=== PATIENT | male | born 1965 | race Caucasian/White ===

== ENCOUNTER 2016-12-18 14:41 | Inpatient (IN) | payer OTHER ==
[~2016-12-18] VITALS: Ht 180.3 cm; Wt 75.6 kg
[~2016-12-18 14:41] MED LIST: AMIO200T37 PO; AMIO20TA PO; AMIODORONE; ASCO500T PO; ASPI1TAB PO; ASPI81TA85 PO; BREO1INH INH; DAILTAB51 PO; DOCU10CA PO; FERR325T3 PO; FIBE500T2 PO; FINA5TAB2 PO; FLOM5CAP PO; FOLI1TAB2 PO; FURO20TA2 PO; FURO40VL IVP; LISI-538 PO; LOSA25TA8 PO; METO50TA2 PO; PANT40TA2 PO; PERCOCET PO; PRAV10TA PO; PRAV40TA2 PO; PROTPAK PO; ROCE1INJ4 IV; TYLE325T5 PO; VITA-112 PO; WARF-20 PO; [UNRECOGNIZED DRUG - CODE] PO
[2016-12-18] MEDS ORDERED: PERCOCET 5MG/325MG TAB PO PRN (15:00)
[2016-12-18 15:37] VITALS: BP 116/78
[2016-12-18] MEDS ORDERED: LOVE0.8I SC (16:02)
[2016-12-18] MEDS ORDERED: LOVE0.4I2 SC (16:02)
[2016-12-18] MEDS ORDERED: WARF4TAB51 PO (16:12)
[2016-12-18] MEDS ORDERED: WARF-20 PO (16:12)
[2016-12-18] MEDS: MORPHINE 2 MG/ML 1ML SYRINGE IV PRN ×2 (16:53→20:34)
[2016-12-18] MEDS ORDERED: ENOX80IN3 SC (17:31)
[2016-12-18 18:00] VITALS: BP 125/75
[2016-12-18] MEDS: DOCUSATE SODIUM 100 MG CAP PO SCH (20:30)
[2016-12-18] MEDS: TAMSULOSIN 0.4 MG CAP PO SCH (20:30)
[2016-12-18] MEDS: METOPROLOL TART 50 MG TAB PO SCH (20:30)
[2016-12-18] MEDS: PRAVASTATIN 20 MG TAB PO SCH (20:30)
[2016-12-18] MEDS: FINASTERIDE 5 MG TAB PO SCH (20:30)
[2016-12-18] MEDS ORDERED: ENOXAPARIN 80 MG/0.8 ML SYRINGE (J1650) SC ONE (21:00)
[2016-12-18 22:00] VITALS: BP 138/87
[2016-12-19] VITALS (8 sets, daily range): BP systolic 107–124; BP diastolic 65–74
[2016-12-19] MEDS: ceFAZolin SOD 1 GM in D5W MINI-BAG PLUS 50 ML IV SCH ×3 (00:13→10:28)
[2016-12-19] MEDS: MORPHINE 2 MG/ML 1ML SYRINGE IV PRN ×2 (05:18→15:16)
[2016-12-19 06:48] LABS: BASO % 0.5 % (0.0-1.0); EOS # 0.1 K/mm3 (0.0-0.50); EOS % 1.5 % (0.0-3.0); LARGE UNSTAINED CELL # 0.2 K/mm3 (0.0-0.4); LARGE UNSTAINED CELL % 2.2 % (0.0-4.0); LYMPH # 1.5 K/mm3 (1.5-4.5); LYMPH % 17.1 % (24.0-44.0); MEAN CORPUSCULAR VOLUME 90.9 fl (80.0-96.0); MONO # 0.6 K/mm3 (0.0-0.8); MONO % 7.7 % (0.0-5.0); NEUTROPHILS # 5.6 K/mm3 (1.8-7.7); NEUTROPHILS % 70.8 % (36.0-66.0); PLATELET COUNT, AUTOMATED 237 k/mm3 (150-450); RED CELL DISTRIBUTION WIDTH 15.2 % (11.5-14.5); WHITE BLOOD COUNT 7.9 K/mm3 (4.0-10.0)
[2016-12-19 07:05] LABS: CALCIUM LEVEL 8.3 MG/DL (8.5-10.1); CREATININE FOR GFR 1.58 MG/DL (0.70-1.30); GLOMERULAR FILTRATION RATE 49.3 (>56); POTASSIUM SERUM 4.1 MEQ/L (3.5-5.1)
[2016-12-19] MEDS: DOCUSATE SODIUM 100 MG CAP PO SCH ×2 (07:45→19:50)
[2016-12-19] MEDS: LOSARTAN 25 MG TAB PO SCH (07:45)
[2016-12-19] MEDS: METOPROLOL TART 50 MG TAB PO SCH ×2 (07:46→19:51)
[2016-12-19] MEDS: AMIODARONE 200 MG TAB (PACERONE) PO SCH (07:46)
[2016-12-19] MEDS ORDERED: AMIODARONE 100MG TABLET (PACERONE) PO SCH (09:00)
[2016-12-19] MEDS ORDERED: fentaNYL 250 MCG/5 ML INJECTION (J3010) As Ordered ONE (11:00)
[2016-12-19] MEDS ORDERED: ONDANSETRON 4MG/2ML VIAL (J2405) As Ordered ONE ×2 (11:00→13:27)
[2016-12-19] MEDS ORDERED: KETOROLAC 60 MG/2 ML VIAL (J1885) As Ordered ONE (11:00)
[2016-12-19] MEDS ORDERED: NEOSTIGMINE 1MG/ML 5 ML SYRINGE (J2710) As Ordered ONE (11:00)
[2016-12-19] MEDS ORDERED: GLYCOPYRROLATE INJ 0.2 MG/ML 2 ML VIAL As Ordered ONE (11:00)
[2016-12-19] MEDS ORDERED: MIDAZOLAM INJ 2 MG/2 ML VIAL (J2250) As Ordered ONE (11:00)
[2016-12-19] MEDS ORDERED: ROCURONIUM BROMIDE 50 MG/5 ML VIAL As Ordered ONE ×2 (11:00→11:51)
[2016-12-19] MEDS ORDERED: dexameTHASONE 4 MG/ML 1ML VIAL (J1100) As Ordered ONE (11:00)
[2016-12-19] MEDS ORDERED: ePHEDrine SULFATE 25 MG/5 ML(5MG/ML) SYRINGE As Ordered ONE (11:02)
[2016-12-19] MEDS ORDERED: PHENYLephrine HCL 500 MCG/5 ML (100MCG/ML) SYRINGE (J2370) As Ordered ONE (11:02)
[2016-12-19] MEDS ORDERED: LIDOCAINE 2% INJ 100 MG/5 ML SDV (FOR ANES.) As Ordered ONE (11:08)
[2016-12-19] MEDS ORDERED: ERTAPENEM 1 GM INJ (INVanz) (J1335) As Ordered ONE (11:34)
[2016-12-19] MEDS ORDERED: fentaNYL 100 MCG/2 ML INJECTION (J3010) As Ordered ONE ×2 (11:53→13:27)
[2016-12-19] MEDS ORDERED: BUPIVACAINE HCL 0.25% 30 ML VIAL As Ordered ONE (12:37)
[2016-12-19] MEDS ORDERED: ONDANSETRON 4MG/2ML VIAL (J2405) IV PRN (13:45)
[2016-12-19] MEDS ORDERED: MORPHINE 2 MG/ML 1ML SYRINGE IV PRN (13:45)
[2016-12-19] MEDS ORDERED: fentaNYL 100 MCG/2 ML INJECTION (J3010) IV PRN (13:45)
[2016-12-19] MEDS ORDERED: LR 1,000 ML IV SCH (13:45)
[2016-12-19] MEDS ORDERED: PERCOCET 5MG/325MG TAB PO PRN (13:45)
[2016-12-19] MEDS ORDERED: METOCLOPRAMIDE INJ 10MG/2ML VIAL (J2765) IV PRN (13:45)
[2016-12-19] MEDS ORDERED: MORPHINE 10 MG/ML 1ML VIAL As Ordered ONE (13:49)
[2016-12-19] MEDS: LR 1,000 ML IV SCH ×2 (15:16→20:36)
[2016-12-19] MEDS ORDERED: MORPHINE 2 MG/ML 1ML SYRINGE IV ONE (16:15)
[2016-12-19] MEDS ORDERED: WARFARIN SOD 4 MG TAB PO ONE (17:00)
[2016-12-19] MEDS: TAMSULOSIN 0.4 MG CAP PO SCH (19:50)
[2016-12-19] MEDS: FINASTERIDE 5 MG TAB PO SCH (19:51)
[2016-12-19] MEDS: PRAVASTATIN 20 MG TAB PO SCH (19:51)
[2016-12-19] MEDS: MORPHINE 4 MG/ML 1ML SYRINGE IV PRN (19:52)
--- NOTE | 2016-12-19 20:40 | HPE ---
DATE OF ADMISSION: 12/18/2016 ADMITTING DIAGNOSIS: Recurrent abdominal wall abscess. HISTORY OF PRESENT ILLNESS: The patient is a 51-year-old man who has had a complex surgical history over the last several years. In early 2014 he underwent a replacement of his aortic and mitral valves with bypass of a coarctation of his aorta. In early 2015, he developed acute diverticulitis and underwent an exploratory laparotomy and resection of a portion of his colon with a diverting small bowel ostomy. He apparently developed a small-bowel obstruction in October 2015 and required re-exploration. He underwent takedown of his ileostomy in January 2016 but had bleeding postoperatively and underwent re-exploration for this. Since shortly after his surgery, he developed an infection of his right lower quadrant transverse incision at the site of his previous ileostomy. This has been drained several times and more recently has spontaneously opened and drained at its lateral end. I had seen him back in late 2015 and scheduled him for exploration of this wound, but shortly before surgery he had some pain and developed EKG changes, and his surgery was cancelled for re-evaluation by cardiology. He was subsequently cleared for surgery. He is on anticoagulation and has been placed on bridge therapy. The patient was scheduled for elective surgery on December 19 for exploration of his wound to try to determine if there is a foreign body or other feature that would continue his recurrent episodes of infection; however, on December 18 the patient contacted the office, as he was having severe pain in the wound. It had not drained since mid October, and it is unusual , he reports, for it to have gone this long. He noted the onset of some pain on December 17, and this rapidly worsened with some redness developing around his wound. He had such severe pain that he presented to the office for evaluation. He was noted to have the start of a recurrent infection with a developing abscess at the lateral end of his wound with some surrounding erythema. It looked as if it was about to drain, but I elected, since he had already traveled an hour and half to get to the hospital, that it would be best to place him in the hospital, start him on some antibiotics, and have him available for surgery as scheduled on the morning of December 19 to address this recurrent infection. MEDICATIONS: - The patient is on amiodarone 200 mg orally every other day. - He is taking aspirin 81 mg by mouth daily. - He is on finasteride 5 mg by mouth daily - tamsulosin 0.4 mg by mouth daily - He is taking pravastatin 40 mg by mouth daily. - He is taking losartan by mouth daily. - He is taking a Breo Ellipta inhaler 100/25 mcg one puff daily - metoprolol tartrate 50 mg by mouth twice daily - He has been on Coumadin 2 mg three times weekly on Sunday, Sunday, and Sunday and Coumadin 4 mg by mouth four times weekly on Sunday, Sunday, , and Sunday. - He has been taking some vitamin D and some fiber supplement. He has stopped his Coumadin effective the December 15 and was started on Lovenox 72 mg by mouth twice daily by his music journalist. ALLERGIES: The patient reports no known drug allergies. MEDICAL HISTORY: Significant for a history of coarctation of the aorta, which he underwent two surgeries for as a young person. In August 2014, he had a repeat repair of his coarctation as an aortic bypass. He has a history of hypertension and hyperlipidemia. He has chronic obstructive pulmonary disease. He has benign prostatic hyperplasia. He has a history of prior stroke, though appears to have had little residual. He has known diverticulosis. He has had a history of some peripheral vascular disease. He has had significant aortic and mitral valve disease, leading to replacement of both valves in August 2014. SURGICAL HISTORY: Includes repair of his coarctation of his aorta with aortic and mitral valve replacements in August 2014. He had a partial colectomy in September 2015 with an exploratory laparotomy in October 2015. He had ileostomy takedown in January, complicated by bleeding, requiring further surgery. He had a double coronary bypass along the line as well, I believe at the same time as his valve replacements. FAMILY HISTORY: Shows that his father is due to lung cancer, and mother has diabetes and hypertension. He is a former smoker who quit to 2006. He does drink alcohol, several per week. REVIEW OF SYSTEMS: Shows no history of chills or fever. He denies any chest pain or palpitations. He denies chronic cough, wheezing, or sputum production. He has not had any rectal bleeding. He is having bowel movements. He does report constipation, which he suggests is somehow related to his recurrent abscess. He has never had any definite intestinal drainage through his area of infection. He denies any other acute issues associated with his review of systems. PHYSICAL EXAMINATION: The patient's most recent vital signs show his temperature to be 98.0 with a pulse of 85, respirations of 20, and a blood pressure of 125/75. The patient is alert and oriented. Skin is warm and dry. Sclerae are anicteric. Mucous membranes are moist. The neck is supple without mass. Heart exam reveals prominent heart valve sounds, consistent with his known valve replacements. He has chest wall scarring, consistent with his prior surgery. His breath sounds are somewhat limited in intensity bilaterally, but he has no wheezing or rhonchi. The abdomen shows midline scarring as well as a right lower quadrant transverse scar. There is no sign of definite hernia. At the lateral end of his right lower quadrant scar there is an area of redness surrounding the scar, maximally about 5 cm in diameter. Within the scar, there is a small, slightly raised area of what appears to be a developing pustule about 1 cm in length x 3-4 mm in width. This is not at this time draining. He has some tenderness surrounding this area. The abdomen is otherwise soft and nontender without appreciable mass. Extremities show no peripheral edema. He has palpable radial pulse bilaterally. FINAL IMPRESSION: 1. Recurrent right lower quadrant wound infection. 2. Status post aortic and mitral valve replacements with aortic bypass for recurrent coarctation of the aorta. 3. Coronary artery disease status post bypass. 4. History of diverticulitis status post colonic resection. 5. Hypertension. 6. hyperlipidemia. 7. Chronic obstructive pulmonary disease. 8. Benign prostatic hyperplasia. 9. Atherosclerotic peripheral vascular disease. PLAN: The patient will be admitted given his acute infection within the wound. He will be started on antibiotics to provide coverage. I anticipate, given the progress of his wound, that spontaneous drainage of his small abscess will occur within a short period of time, and so I will not proceed with incision and drainage at this point. I would anticipate that we would proceed with his surgery as already scheduled on December 19. He had started his bridge therapy as anticipated and will be given one dose of Lovenox tonight, and this will then be discontinued, and this should be adequate for his surgery tomorrow. The plan is to proceed with exploration directly through his wound, to open this area, and look for evidence of a foreign body or other underlying process that prevents the wound from healing and resolving completely. His regular cardiac medications will be continued. He will be kept nothing by mouth after midnight. The patient has previously been counseled regarding the plan for care and desires to proceed. IBIS
[2016-12-20 06:00] VITALS: BP 159/92
--- NOTE | 2016-12-20 07:09 | RO ---
DATE OF PROCEDURE: 12/19/2016 PREOPERATIVE DIAGNOSIS: Recurrent abdominal wall abscess at right lower quadrant wound. POSTOPERATIVE DIAGNOSIS: Enterocutaneous fistula right lower quadrant. OPERATIVE PROCEDURE: Exploration of wound with laparotomy, excision of enterocutaneous fistula, and partial small-bowel resection. SURGEON: Gilberto Arreaga MD CIVIL CADD TECHNICIAN: Fer Valdez MS III INDICATIONS FOR PROCEDURE: The patient is a 51-year-old man who had undergone surgery for diverticulitis at another hospital in early 2015. Apparently this was an emergency procedure and he had a diverting ileostomy created. He had a postoperative bowel obstruction that required re-exploration. In January of 2016, he underwent closure of his ileostomy through his right lower quadrant incision. He had some postoperative bleeding that required re-exploration. Since then he has had several episodes of an abscess developing at the lateral extent of his wound. This has been occurring about every 3 or 4 weeks where he will now develop an abscess which opens spontaneously, drains for a time and then resolves only to recur again. He is now for exploration of this wound to assess whether this represents suture abscess or possibly an enterocutaneous fistula. DESCRIPTION OF PROCEDURE: The patient was placed under general endotracheal anesthesia. The patient's abdomen was prepped and draped in a sterile fashion. Examination of the right lower quadrant showed an approximately 10 cm transverse scar with a small open area at the lateral end of it. His abscess had been redeveloping over the last few days and actually broke open in the trench shovel operator hours of the day of surgery. A clamp was inserted into the opening and this advanced readily at least 6-7 cm into the abdominal wall. I made an incision in the scar to follow the tract of the fistula. An approximately 6-7 cm length of his old scar was opened by extending this incision medially and deepening this through the subcutaneous tissues using the electrocautery. There was some significant scarring noted. As the incision was deepened through the subcutaneous tissues, it was clear that the hemostat extended through the abdominal wall muscles and into the abdominal cavity. The muscles were opened medial and lateral to this fistula tract. I excised the more superficial portions of the tract with small margins of skin and subcutaneous tissue on both sides. The peritoneum was opened again medial and lateral to the sinus tract and with careful dissection the intra-abdominal contents were dissected away from the overlying abdominal wall. As dissection proceeded it was clear that the fistula extended to the area of his small bowel anastomosis underlying this portion of the abdominal wall. With further dissection, the proximal and distal limbs of this anastomosis were dissected free to allow better inspection. The tract extended right to the end of the anastomosis. As this area was opened somewhat, it appeared that there was either a small chronic abscess or possibly a small mucocele at the end of the anastomosis covered by some overlying portions of the small bowel wall and the periileal fat. There was no gross drainage of small bowel contents, but every so often a few bubbles of air were released and inspection suggested a very small fistula into the lumen of the small bowel. Some of the fibrofatty tissue around the anastomosis was excised to allow better inspection of this area as I determined how best to address this. Ultimately, I elected to excise what amounted to the staple line at the end of the anastomosis and restaple this area. Therefore, the small bowel was transected with a combination of cautery and sharp dissection with scissors. This removed the entire area where the abscess or mucocele had been with the area of the fistula. All of these fragments of skin and subcutaneous tissue and bowel were sent together labeled enterocutaneous fistula. Once the prior staple line was cut off, the ends of the bowel were held with allis clamps and the end of the bowel was closed with a TX60G stapler. This appeared to give an excellent closure. A few small bleeding points were controlled with cautery. There appeared to be excellent vascularity. The anastomosis was washed and irrigated off. A small Kelvin wound protector type retractor had been placed to perform this latter portion of the procedure where the end of the small bowel was excised. This was then removed. The surgical team changed gloves. The wound was irrigated. Final inspection within the abdomen showed no bleeding and the anastomosis looked good. The deepest muscle layer with the underlying peritoneum was then approximated with several interrupted simple sutures of #1 Vicryl. The internal oblique was then approximated with several interrupted simple sutures of #1 Vicryl and the external oblique was then also closed with Vicryl. I infiltrated some 0.25% Marcaine along both sides of the wound. The skin and subcutaneous tissues were loosely approximated with approximately four simple sutures of #4-0 nylon. Three small jacinta of a quarter inch Reynolds drain were then inserted into the subcutaneous tissues through the spaces between the sutures. These were sutured to the skin with Vicryl sutures. A bulky bandage was applied. The patient tolerated the procedure well without apparent complication. He was awakened in the operating room, extubated and moved to the recovery room in stable condition. IBIS
[2016-12-20] MEDS: DOCUSATE SODIUM 100 MG CAP PO SCH ×2 (08:11→20:07)
[2016-12-20] MEDS: LOSARTAN 25 MG TAB PO SCH (08:11)
[2016-12-20] MEDS: METOPROLOL TART 50 MG TAB PO SCH ×2 (08:11→20:08)
[2016-12-20] MEDS: MORPHINE 4 MG/ML 1ML SYRINGE IV PRN ×2 (08:12→23:20)
[2016-12-20] MEDS ORDERED: INFLUENZA QUADRIVALENT PF VACCINE 0.5ML SYRINGE/VIAL (90686) IM ONE (09:00)
[2016-12-20] MEDS ORDERED: NORCO, ANEXSIA 5/325MG TABLET (HYDROcodone/ACETAMINOPHEN) PO PRN (11:15)
[2016-12-20] MEDS: ENOXAPARIN 80 MG/0.8 ML SYRINGE (J1650) SC SCH ×2 (11:35→23:19)
[2016-12-20] MEDS: NORCO, ANEXSIA 5/325MG TABLET (HYDROcodone/ACETAMINOPHEN) PO PRN ×2 (11:39→20:12)
[2016-12-20] MEDS: LR 1,000 ML IV SCH (16:25)
[2016-12-20] MEDS ORDERED: WARFARIN SOD 2 MG TAB PO SCH ×2 (19:30→20:03)
[2016-12-20] MEDS ORDERED: WARFARIN SOD 4 MG TAB PO SCH (19:30)
[2016-12-20] MEDS: TAMSULOSIN 0.4 MG CAP PO SCH (20:08)
[2016-12-20] MEDS: FINASTERIDE 5 MG TAB PO SCH (20:08)
[2016-12-20] MEDS: PRAVASTATIN 20 MG TAB PO SCH (20:08)
[2016-12-20 22:00] VITALS: BP 135/70
[2016-12-21 06:00] VITALS: BP 145/80
[2016-12-21 06:58] LABS: BASO % 0.5 % (0.0-1.0); EOS # 0.1 K/mm3 (0.0-0.50); LARGE UNSTAINED CELL # 0.2 K/mm3 (0.0-0.4); LARGE UNSTAINED CELL % 2.4 % (0.0-4.0); LYMPH # 1.6 K/mm3 (1.5-4.5); LYMPH % 19.9 % (24.0-44.0); MEAN CORPUSCULAR HEMOGLOBIN 30.3 pg (27.0-33.0); MEAN CORPUSCULAR HGB CONC 32.9 g/dl (32.0-36.5); MEAN CORPUSCULAR VOLUME 92.1 fl (80.0-96.0); MONO # 0.5 K/mm3 (0.0-0.8); MONO % 6.8 % (0.0-5.0); NEUTROPHILS # 5.2 K/mm3 (1.8-7.7); NEUTROPHILS % 69.4 % (36.0-66.0); PLATELET COUNT, AUTOMATED 244 k/mm3 (150-450); RED CELL DISTRIBUTION WIDTH 15.1 % (11.5-14.5); WHITE BLOOD COUNT 7.4 K/mm3 (4.0-10.0)
[2016-12-21 07:10] LABS: INR 1.01
[2016-12-21] MEDS ORDERED: ENOXAPARIN 80 MG/0.8 ML SYRINGE (J1650) SC ONE ×2 (08:00→22:30)
[2016-12-21] MEDS: LOSARTAN 25 MG TAB PO SCH (08:30)
[2016-12-21] MEDS: DOCUSATE SODIUM 100 MG CAP PO SCH ×2 (08:30→20:47)
[2016-12-21] MEDS: AMIODARONE 200 MG TAB (PACERONE) PO SCH (08:31)
[2016-12-21] MEDS: METOPROLOL TART 50 MG TAB PO SCH ×2 (08:31→20:47)
[2016-12-21] MEDS: MORPHINE 4 MG/ML 1ML SYRINGE IV PRN ×2 (08:43→14:24)
[2016-12-21] MEDS ORDERED: WARFARIN SOD 4 MG TAB PO ONE (09:45)
[2016-12-21 14:00] VITALS: BP 151/74
[2016-12-21] MEDS: WARFARIN SOD 4 MG TAB PO SCH (16:46)
[2016-12-21] MEDS: NORCO, ANEXSIA 5/325MG TABLET (HYDROcodone/ACETAMINOPHEN) PO PRN ×2 (16:47→20:48)
[2016-12-21] MEDS: TAMSULOSIN 0.4 MG CAP PO SCH (20:47)
[2016-12-21] MEDS: FINASTERIDE 5 MG TAB PO SCH (20:47)
[2016-12-21] MEDS: PRAVASTATIN 20 MG TAB PO SCH (20:48)
[2016-12-21 22:00] VITALS: BP 144/70
[2016-12-22] MEDS: NORCO, ANEXSIA 5/325MG TABLET (HYDROcodone/ACETAMINOPHEN) PO PRN ×3 (02:21→16:51)
[2016-12-22 06:00] VITALS: BP 140/72
[2016-12-22 06:43] LABS: INR 1.09
[2016-12-22] MEDS: DOCUSATE SODIUM 100 MG CAP PO SCH (07:55)
[2016-12-22] MEDS: METOPROLOL TART 50 MG TAB PO SCH (07:55)
[2016-12-22] MEDS ORDERED: ENOXAPARIN 80 MG/0.8 ML SYRINGE (J1650) SC SCH (08:00)
[2016-12-22 09:00] VITALS: BP 136/78
[2016-12-22] MEDS: LOSARTAN 25 MG TAB PO SCH (09:00)
[2016-12-22] MEDS ORDERED: LOVE0.6I2 SC (14:17)
[2016-12-22] MEDS ORDERED: NORCOTAB PO (14:17)
[2016-12-22] MEDS: WARFARIN SOD 4 MG TAB PO SCH (16:21)
--- NOTE | 2017-01-10 11:04 | DSES ---
DATE OF ADMISSION: 12/18/2016 DATE OF DISCHARGE: 12/19/2016 ADMISSION DIAGNOSIS: Recurrent abdominal wall abscess. HISTORY OF PRESENT ILLNESS: The patient is a 51-year-old man who has had a complex surgical history over the last several years. In early 2014, he underwent a replacement of his aortic and mitral valves with bypass of a coarctation of his aorta. In early 2015, he developed an acute diverticulitis and underwent an exploratory laparotomy and resection of a portion of his colon with a diverting small bowel ostomy. He apparently developed a small bowel obstruction in October 2015 and required re-exploration. He underwent takedown of his ileostomy in January 2016 but had bleeding postoperatively and underwent a re-exploration for this. Since shortly after his surgery, he developed an infection of his right lower quadrant transverse incision at the site of his previous ileostomy. This has been drained several times and more recently has spontaneously opened and drained at its lateral and. I had seen him back in late 2015 and scheduled him for exploration of his wound but shortly before surgery he had some chest pain and developed EKG changes and his surgery was cancelled for reevaluation by cardiology. He was subsequently cleared for surgery. He remains on anticoagulation and has been placed on bridge therapy. The patient was scheduled for elective surgery on December 19 for exploration of his wound to look for a retained foreign body or other problems that led to his recurring infections. On December 18, the patient contacted the office indicating that he was having severe pain in the wound. It had not drained since mid October, which he reported was quite unusual. He noted the onset of the pain on December 17, and this rapidly worsened with some redness developing around his wound. He had such severe pain that he was brought into the office for evaluation. He was noted to have the start of her recurrent infection with a developing abscess of the lateral end of his wound with some surrounding erythema. I elected to admit the patient and start him on antibiotics to prepare him for his surgery, which was already scheduled for December 19 He was therefore admitted. HOSPITAL COURSE: The patient was admitted to a medical-surgical floor. He was started on antibiotic coverage. He was continued on his Lovenox bridge therapy in anticipation of his surgery on December 19. On December 19, he was taken to the operating room where he underwent exploration of his wound. He was found to have a enterocutaneous fistula tract that extended through the abdominal wall and down to the anastomosis from closure of his ileostomy. His procedure included a exploration of the wound with laparotomy, excision of enterocutaneous fistula, and a partial small-bowel resection. At the conclusion of the procedure, his wound was closed, but small Redmond drains were left in the skin and subcutaneous tissues to promote drainage. The patient did well following surgery. He remained afebrile. His urine output was adequate. He tolerated clear liquids by postop day #1. He was started back on his usual Coumadin and his Lovenox was continued. His wound was inspected on postop day #2 and showed minimal drainage. He was begun on local wound care. He had missed his dose of Coumadin on the evening of the so received an extra dose on the morning of the . His PT and INR were 13.4 and 1.01 on December 21. The Lovenox was continued as his Coumadin was nowhere near therapeutic. His Juan drains were removed from his wound on the third postoperative day. He was otherwise taking a diet well. He was having some discomfort but this was adequately controlled with oral medications. Because his INR was only 1.09 on the , he was instructed to continue his Lovenox through December 24, as his Coumadin had a chance to become more effective and he was to have a PT and INR on December 25 and followup with his physician for further adjustment as needed. FINAL DIAGNOSIS 1. 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 2. Status post aortic and mitral valve replacements with aortic bypass for recurrent coarctation of the aorta. 3. Coronary artery disease status post bypass. 4. History of diverticulitis status post colon resection. 5. Hypertension. 6. Hyperlipidemia. 7. Chronic obstructive pulmonary disease. 8. Benign prostatic hyperplasia. 9. Atherosclerotic peripheral vascular disease. PROCEDURES PERFORMED: Exploration of abdominal wound with a laparotomy, excision of enterocutaneous fistula, and partial small-bowel resection. DISPOSITION: The patient was discharged on December 22, 2016. He was to followup with me in the office on the . He was advised against any lifting greater than 30 pounds or other strenuous activity. He could begin to shower on December 23. He was to apply some topical antibiotic ointment to the wound daily and cover with a dressing until completely healed. He was to continue his Lovenox 70 mg twice daily through the evening of December 24 and have a PTT/ INR done on 12/25/2016. He was provided with additional prescriptions for Lovenox and [place]. He was to continue his other usual medications, including amiodarone, aspirin, vitamin D, fiber therapy, finasteride, Breo Ellipta inhaler, losartan, metoprolol, pravastatin, tamsulosin, warfarin. The patient was to contact my office for any problems.
== END 2016-12-22 16:50 | disposition home or self-care (01) | DRG 711 ==
LOC: M MSPAV 15:11 → M MS5PR 12-19 14:30
PROVIDERS: ADMIT Surgery; ATTEND Surgery
PROC: 0DB80ZZ Excision of Small Intestine, Open Approach (ICD-10-PCS; principal; 2016-12-19 09:30)
DX: T81.4XXA Infection following a procedure, initial encounter (principal); K63.2 Fistula of intestine; J44.9 Chronic obstructive pulmonary disease, unspecified; I25.10 Atherosclerotic heart disease of native coronary artery without angina pectoris; E78.5 Hyperlipidemia, unspecified; N40.0 Benign prostatic hyperplasia without lower urinary tract symptoms; I10 Essential (primary) hypertension; I70.209 Unspecified atherosclerosis of native arteries of extremities, unspecified extremity; Z79.899 Other long term (current) drug therapy; Z79.82 Long term (current) use of aspirin; K57.30 Diverticulosis of large intestine without perforation or abscess without bleeding; Z86.73 Personal history of transient ischemic attack (TIA), and cerebral infarction without residual deficits

== ENCOUNTER → 2017-03-21 | Outpatient (CLI) | payer OTHER ==
[~2017-03-21] MED LIST changes: +ENOX80IN3 SC; -FIBE500T2 PO; +FIBE500T5 PO; -FOLI1TAB2 PO; +FOLI1TAB4 PO; +LOVE0.4I2 SC; +LOVE0.6I2 SC; +LOVE0.8I SC; -METO50TA2 PO; +METO50TA7 PO; +NORCOTAB PO; -PRAV10TA PO; +PRAV10TA4 PO; +WARF4TAB51 PO
--- NOTE | 2017-03-22 01:38 | REP ---
Clinical: Chronic obstructive pulmonary disease. Technique: PA and lateral. Comparison: 08/30/2014. Findings: Mediastinum and cardiac silhouette are stable. Evidence for prior sternotomy, CABG, and aortic valve repair. Lung curry demonstrate chronic interstitial changes without acute consolidation, effusion, or pneumothorax. Skeletal structures are intact. Impression: Chronic stable changes. No acute cardiopulmonary process appreciated. Signed by Ba Zimmer MD 03/22/2017 01:29 A
== END ==
LOC: M SMT 14:12
PROVIDERS: ATTEND Internal Medicine Pulmonary Disease
DX: J44.9 Chronic obstructive pulmonary disease, unspecified (principal)

== ENCOUNTER → 2020-12-14 | Outpatient (CLI) | payer OTHER ==
[~2020-12-14] MED LIST changes: +AMIO200T10 PO; -AMIO20TA PO; -ASPI1TAB PO; +ASPI81TA26 PO; -ASPI81TA85 PO; +ASPI81TA86 PO; +FIBE500T4 PO; -FIBE500T5 PO; +FLOM0.4C39 PO; -FLOM5CAP PO; +FOLI1TAB11 PO; -FOLI1TAB4 PO; -FURO40VL IVP; +HYDR-3715 PO; -LISI-538 PO; +LISI20TA33 PO; +LOSA25TA14 PO; -LOSA25TA8 PO; -NORCOTAB PO; -PANT40TA2 PO; +PANT40TA29 PO; -ROCE1INJ4 IV; +ROCE1INJ6 IV; +[UNRECOGNIZED DRUG - CODE] IVP
--- NOTE | 2020-12-15 09:13 | REP ---
INDICATION: DIAGNOSING LUNG NODULE R91.1. Enlarging lung nodule. Report of chest CT study 23 November 2020 describes a 10 mm pulmonary nodule in the left lower lobe. Ground-glass opacity right upper lobe 8 mm. COMPARISON: [facility] CT study is retrieved from 23 November 2020.. Comparison is also made with prior CT study of the chest from 29 August 2014. TECHNIQUE: Forty-nine minutes following the intravenous injection of a 15.80 mCi dose of F-18 FDG, three-dimensional PET scintigraphy is acquired from the skull base to the proximal thighs. Triplanar noncontrast CT scanning is acquired through the same anatomic range for attenuation correction, and image registration with scan parameters optimized to minimize radiation exposure to the patient. PET scintigraphy and CT datasets were fused and displayed on a workstation with multiplanar and projection display capability. FINDINGS: Today's accompanying CT study demonstrates postsurgical changes with evidence of aortic and mitral valve replacement. There is a graft in place between the ascending aortic root and the descending aorta coursing anteriorly along the right heart border. Median sternotomy wires are noted. 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 1 Some vascular calcification is observed. There are surgical clips in the right groin soft tissues. On lung window settings, there is a 5 mm nodular density with some linear fibrosis in the left posterior lung gutter. This is improved from the recent CT findings. The [address] study showed a 2 cm nodular opacity in this location. The lung curry are otherwise clear. There is no visible FDG accumulation in the left posterior lung gutter. Maximum standard uptake value 1.07. There is no abnormal hypermetabolic uptake in the lung parenchyma on either side. No hilar or mediastinal hypermetabolic gama uptake is seen. Head and neck soft tissues are unremarkable. In the abdomen and pelvis, normal hepatic, splenic, gastrointestinal, and genitourinary FDG accumulation is seen. No abnormal hypermetabolic uptake is seen in the abdomen or pelvis. IMPRESSION: Negative PET scintigraphy. The left lower lobe nodule appears improved on accompanying CT study, when compared with the [address] study. It is unchanged from November 23, 2020 images.. No discernible uptake. Interval CT follow-up suggested. <Electronically signed by Pool Solitario > 12/15/20 [id number]
== END ==
LOC: M PLARAD 11:31
PROVIDERS: ATTEND Thoracic Surgery (Cardiothoracic Vascular Surgery)
DX: R91.1 Solitary pulmonary nodule (principal); R91.8 Other nonspecific abnormal finding of lung field
CPT/HCPCS: 78815; A9552

== ENCOUNTER → 2021-06-20 | Outpatient (CLI) | payer OTHER ==
--- NOTE | 2021-06-20 15:20 | REP ---
INDICATION: PULMONARY NODULE. COMPARISON: 11/23/[address], 06/19/2018 CT; PET-CT 12/14/2020. TECHNIQUE: Noncontrast scanning through the chest with coronal and sagittal reconstructions. FINDINGS: In the posterior left costophrenic angle is again noted to be a small nodule with the some linear scarring extending the posterior pleural margin of the medial basal segment to the posterior diaphragmatic margin. Maximum AP diameter 6.5 mm in this is unchanged from multiple prior studies there is no enlargement of this nodule. Ground-glass nodule on image 39 the right upper lobe is about 6.4 mm and unchanged. There is also a 5.7 mm ground-glass nodule which measures about 6.6 mm by my direct measurement on 11/23/2020. This too is certainly not enlarged. Some curvilinear fibrotic changes are seen anteriorly in the right mid lung zone stable. No pleural effusion, pleural based mass or calcified pleural plaques identified. No parenchymal masses. Atherosclerotic calcifications in the aorta with evidence for sternotomy and prior mitral and aortic valve surgery. This is all stable. A right-sided aortic graft is unchanged. Vascular calcifications again seen at the origin of the great vessels off the arch. The chronic changes in the distal thoracic arch are again noted consistent with history of coarctation and bypass graft repair. Heart size unchanged. Mildly prominent left atrium. No pericardial thickening or effusion. Visualized portion of the upper abdomen is stable with small calcification in a pyramid posteriorly in the upper pole of the left kidney as before and no new finding. Bones are unchanged. IMPRESSION: 1. Stable appearance of a ground-glass opacity seen in the right upper lobe since previous CT in November. There is also a left-sided upper lobe ground-glass opacity best seen on image 52 measuring about 6 mm, stable. The nodule in the deep sulcus right lower lobe is stable as well. No new lung finding. 2. Cortication of the aorta with a right-sided aortic bypass graft, stable. Both aortic and mitral valve surgery evident. Sternotomy wires. 3. No new or acute finding. <Electronically signed by Freedom Cuellar > 06/20/21 [id number]
== END ==
LOC: M PLAIMG 11:23
PROVIDERS: ATTEND Thoracic Surgery (Cardiothoracic Vascular Surgery)
DX: R91.8 Other nonspecific abnormal finding of lung field (principal); I70.0 Atherosclerosis of aorta; J84.10 Pulmonary fibrosis, unspecified; N20.0 Calculus of kidney